=== PATIENT | female | born 1960 | race Two or more races ===

== ENCOUNTER 2024-05-29 11:00 | Inpatient (IN) | payer OTHER ==
[~2024-05-29] VITALS: Ht 152.4 cm; Wt 77.1 kg
[2024-05-29 12:36] VITALS: BP 125/85
[2024-05-29] MEDS ORDERED: DULOXETINE HCL40 MG (12:38)
[2024-05-29] MEDS ORDERED: LIPITOR40 M1 PO (12:38)
[2024-05-29] MEDS ORDERED: BUSPIRONE HCL7.5 MG (12:38)
[2024-05-29] MEDS ORDERED: PEPCID40 MG PO (12:39)
[2024-05-29] MEDS ORDERED: COZAAR50 MG PO (12:39)
[2024-05-29] MEDS ORDERED: DULOXETINE HCL40 MG PO (12:40)
[2024-06-08] MEDS ORDERED: VANCOMYCIN HCL 1,000 MG VIAL ONE (11:33)
[2024-06-08] MEDS ORDERED: POLYMYXIN B SULFATE 500,000 U VIAL ONE (11:33)
[2024-06-08] MEDS ORDERED: BUPIVACAINE HCL/MPF 0.5% 30ML VIAL ONE (11:33)
[2024-06-08] MEDS ORDERED: TRANEXAMIC ACID 100MG/1ML (1000MG) AMPUL IV ONE (11:34)
[2024-06-08] MEDS ORDERED: LIDOCAINE HCL 1%/EPINEPHRINE 20ML VIAL IJ ONE (11:34)
[2024-06-08] MEDS ORDERED: CEFAZOLIN SODIUM 1,000 MG VIAL ONE ×2 (11:34→16:31)
[2024-06-08] MEDS ORDERED: MORPHINE SULFATE 4 MG/ML VIAL IV ONE ×3 (15:00→16:30)
[2024-06-08] MEDS ORDERED: MORPHINE SULFATE 4 MG/ML CARTRIDGE IV PRN (15:30)
[2024-06-08] MEDS ORDERED: SODIUM CHLORIDE 0.45 % 1,000 ML IV SCH (15:30)
[2024-06-08] MEDS ORDERED: MORPHINE SULFATE 2 MG/ML CARTRIDGE IV NR (15:30)
[2024-06-08] MEDS ORDERED: ONDANSETRON HCL 2 MG/ML VIAL IV PRN (15:30)
[2024-06-08 17:17] LABS: HEMATOCRIT 40.3 % (36.0-45.00); HEMOGLOBIN 12.9 g/dL (12.0-15.00); RED BLOOD COUNT 4.6 M/uL (4.00-6.00)
[2024-06-08] MEDS ORDERED: ONDANSETRON HCL 2 MG/ML VIAL ONE (17:51)
[2024-06-08] MEDS ORDERED: CEFAZOLIN SODIUM 1,000 MG VIAL IV SCH (18:00)
[2024-06-08 19:18] VITALS: BP 116/75; O2SAT 97
[2024-06-08] MEDS ORDERED: ACETAMINOPHEN 500 MG GEL..CAP PO PRN (20:30)
[2024-06-08] MEDS ORDERED: GENTAMICIN SULFATE 40 MG/ML VIAL IV SCH (21:00)
[2024-06-09] VITALS: BP 135/78; O2SAT 96
[2024-06-09] MEDS ORDERED: ACETAMINOPHEN WITH CODEINE 1 UDTAB TABLET PO PRN (08:00)
[2024-06-09 08:20] LABS: HEMATOCRIT 39.6 % (36.0-45.00); HEMOGLOBIN 13.4 g/dL (12.0-15.00); MEAN CELL VOLUME 85.1 fL (80.00-100.00); MEAN CORPUSCULAR HEMOGLOBIN 28.9 pg (27.00-32.0); MEAN CORPUSCULAR HGB CONC 33.9 g/dl (32.0-36.0); PLATELET COUNT 311 K/uL (150-450); RED BLOOD COUNT 4.65 M/uL (4.00-6.00); RED CELL DISTRIBUTION WIDTH 14.1 % (11.5-14.5)
[2024-06-09 09:00] VITALS: BP 123/84; O2SAT 95
[2024-06-09] MEDS ORDERED: ATORVASTATIN CALCIUM 40 MG TABLET PO SCH (09:00)
[2024-06-09] MEDS ORDERED: RIVAROXABAN 10 MG TAB PO SCH (09:00)
[2024-06-09] MEDS ORDERED: SULFAMETHOXAZOLE/TRIMETHOPRIM DS 1 TAB PO SCH (09:00)
[2024-06-09] MEDS ORDERED: FAMOtidine 40 MG TABLET PO SCH (09:00)
[2024-06-09] MEDS ORDERED: BACITRACIN 28.35 GM OINT.TUBE TOP SCH (09:00)
[2024-06-09] MEDS ORDERED: IRON FUM,PS/FOLIC/BCOMP,C NO.9 1 CAP CAPSULE PO SCH (09:00)
[2024-06-09] MEDS ORDERED: LOSARTAN POTASSIUM 50 MG TABLET PO SCH (09:00)
[2024-06-09 13:28] LABS: ALBUMIN 3.1 gm/dL (3.4-5.0); BILIRUBIN TOTAL 0.47 mg/dL (0.3-1.2); CALCIUM 8.8 mg/dL (8.5-10.1); CREATININE SERUM 0.86 mg/dL (0.55-1.02); GFR 66.86; GLOBULINA 2.9 G/DL (2.4-3.5); POTASSIUM 3.84 mEq/L (3.5-5.1)
[2024-06-09] MEDS ORDERED: DEXTROSE 50 % IN WATER 0.5 G/ML DISP.SYRIN IV PRN (14:00)
[2024-06-09] MEDS ORDERED: INSULIN LISPRO 1,000 UNIT/10 ML UNITS SUBCUTANEO PRN (14:00)
[2024-06-09 16:00] VITALS: BP 127/72; O2SAT 100
[2024-06-09] MEDS ORDERED: DIPHENHYDRAMINE HCL 50 MG/ML VIAL 1ML IV STA (21:12)
[2024-06-10] MEDS ORDERED: DIPHENHYDRAMINE HCL 50 MG/ML VIAL 1ML IV SCH
[2024-06-10 01:29] VITALS: BP 133/81; O2SAT 99
[2024-06-10 08:36] VITALS: BP 130/65; O2SAT 98
[2024-06-10 11:01] LABS: HEMATOCRIT 36.5 % (36.0-45.00); HEMOGLOBIN 12.2 g/dL (12.0-15.00); MEAN CELL VOLUME 86.6 fL (80.00-100.00); MEAN CORPUSCULAR HEMOGLOBIN 28.9 pg (27.00-32.0); MEAN CORPUSCULAR HGB CONC 33.4 g/dl (32.0-36.0); PLATELET COUNT 240 K/uL (150-450); RED BLOOD COUNT 4.21 M/uL (4.00-6.00)
[2024-06-10 16:00] VITALS: BP 112/76; O2SAT 95
[2024-06-10] MEDS ORDERED: METOPROLOL SUCCINATE 25 MG TAB.SR.24H PO SCH (17:00)
[2024-06-11] VITALS: BP 120/76; O2SAT 97
[2024-06-11 08:00] VITALS: BP 114/64
[2024-06-11] MEDS ORDERED: Septra Ds Tablet PO (08:11)
[2024-06-11] MEDS ORDERED: TOPROL XL25 M1 PO (08:12)
[2024-06-11] MEDS ORDERED: XARELTO10 MG PO (08:12)
[2024-06-11] MEDS ORDERED: INTEGRA PLUS C1 EACH PO (08:12)
[2024-06-11] MEDS ORDERED: PAIN RELIEVER500 M2 PO (08:12)
== END 2024-06-11 14:01 | disposition home or self-care (01) | DRG 470 ==
LOC: SURG 06-08 07:20 → O/R 06-08 07:20 → SURH 06-08 10:30 → SURG 06-08 14:13
PROVIDERS: ADMIT Orthopaedic Surgery Sports Medicine; ATTEND Orthopaedic Surgery Sports Medicine
PROC: 0SR903Z Replacement of Right Hip Joint with Ceramic Synthetic Substitute, Open Approach (ICD-10-PCS; principal; 2024-06-08 10:30)
DX: M16.11 Unilateral primary osteoarthritis, right hip (principal); I10 Essential (primary) hypertension; G47.33 Obstructive sleep apnea (adult) (pediatric)